=== PATIENT | male | born 1980 ===

== ENCOUNTER 2019-03-27 05:34 | Day surgery (SDC) | payer OTHER ==
[~2019-03-27 05:34] MED LIST: COZAAR50 MG PO; SERTRALINE PO
[2019-03-27] MEDS ORDERED: PERCOCET 5-3251 EACH PO (08:28)
[2019-03-27] MEDS ORDERED: RECTICARE30 GM TOP (08:29)
== END 2019-03-27 17:40 | disposition home or self-care (01) ==
LOC: CIR.AMB 05:34 → EDBD 09:45 → CIR.AMB 11:00
DX: K64.2 Third degree hemorrhoids (principal)

== ENCOUNTER 2019-11-07 10:44 | Day surgery (SDC) | payer OTHER ==
[~2019-11-07 10:44] MED LIST changes: +PERCOCET 5-3251 EACH PO; +RECTICARE30 GM TOP
== END 2019-11-07 14:40 | disposition home or self-care (01) ==
LOC: AMB-ENDOS 10:44 → ADM 14:45
PROVIDERS: ATTEND Surgery
DX: K62.89 Other specified diseases of anus and rectum (principal); K52.89 Other specified noninfective gastroenteritis and colitis; K64.8 Other hemorrhoids